=== PATIENT | female | born 1970 | race Two or more races ===

== ENCOUNTER 2019-05-29 16:23 | Emergency (ER) | payer OTHER ==
--- NOTE | 2019-05-29 16:49 | PDOC ---
Rapid Medical Evaluation Chief Complaint: Headache Time Seen by Provider: 05/29/19 16:47 Medical Evaluation: 05/29/19 16:47 c/o headache and blood pressure elevated than normal. patient c/o headache. patient reports one episode of nosebleed last night PE: patient alert ox3. A: hypertension P: patient to the ER for further management of care. 05/29/19 16:48 Discharge Disposition - Diagnosis Headache Qualifiers: Headache type: unspecified Headache chronicity pattern: acute headache Intractability: not intractable Qualified Code(s): R51 - Headache - Referrals - Patient Instructions - Post Discharge Activity
[2019-05-29 16:51] VITALS: BP 137/75; PULSE 71; TEMP 98.2; BMI 27.1
[2019-05-29] MEDS ORDERED: ACETAMINOPHEN 325 MG TABLET (FP) PO ONE (17:41)
--- NOTE | 2019-05-29 17:42 | PDOC ---
History of Present Illness - General Chief Complaint: Headache Stated Complaint: BLOOD PRESSURE PROBLEMS Time Seen by Provider: 05/29/19 16:47 - History of Present Illness Initial Comments: 05/29/19 18:07 49 yo F PMH cholecystectomy, appendectomy while in [place], presenting with occipital BRIGGS. Patient reports BRIGGS beginning yesterday, 12/22, took ibuprofen with improvement. However, she developed a nosebleed yesterday and noted her BPs were 150s/80s. She continued to have BRIGGS today, again responsive to ibuprofen. States that she never had these symptoms before so she was very concerned. Has a primary care doctor appointment on Saturday. Specifically denies CP, SOB, N/V, fevers/chills, constipation/diarrhea, weakness , numbness, tingling. Past History - Past Medical History Allergies/Adverse Reactions: Allergies Allergy/AdvReac Type Severity Reaction Status Date / Time No Known Allergies Allergy Verified 05/29/19 18:08 COPD: No - Immunization History Immunization Up to Date: Yes - Psycho Social/Smoking Cessation Hx Smoking History: Never smoked Information on smoking cessation initiated: No Hx Alcohol Use: No Drug/Substance Use Hx: No Review of Systems - Review of Systems Comments:: 05/29/19 18:51 GENERAL/CONSTITUTIONAL: No fever or chills. No weakness. HEAD, EYES, EARS, NOSE AND THROAT: No change in vision. No ear pain or discharge. No sore throat. CARDIOVASCULAR: No chest pain or shortness of breath. RESPIRATORY: No cough, wheezing, or hemoptysis. GASTROINTESTINAL: No nausea, vomiting, diarrhea or constipation. GENITOURINARY: No dysuria, frequency, or change in urination. MUSCULOSKELETAL: No joint or muscle swelling or pain. No neck or back pain. SKIN: No rash NEUROLOGIC: Occipital headache, no vertigo, loss of consciousness, or change in strength/sensation. ENDOCRINE: No increased thirst. No abnormal weight change. HEMATOLOGIC/LYMPHATIC: No anemia, easy bleeding, or history of blood clots. ALLERGIC/IMMUNOLOGIC: No hives or skin allergy *Physical Exam - Vital Signs Last Vital Signs Temp Pulse Resp BP Pulse Ox 98.2 F 71 17 137/75 98 05/29/19 16:48 05/29/19 16:48 05/29/19 16:48 05/29/19 16:48 05/29/19 16:48 ED Treatment Course - LABORATORY CBC & Chemistry Diagram: 05/29/19 21:02 05/29/19 21:02 Medical Decision Making - Medical Decision Making 05/29/19 18:52 Patient with headache responsive to ibuprofen at home, no fevers, neurological deficits, no hx IV drug use. - will assess response to acetaminophen - patient already has PMD appointment on Saturday - likely dc home 05/29/19 22:50 CT head with no acute pathology. Labs wnl. Will dc. Discharge - Discharge Information Problems reviewed: Yes Clinical Impression/Diagnosis: Headache Qualifiers: Headache type: unspecified Headache chronicity pattern: acute headache Intractability: not intractable Qualified Code(s): R51 - Headache Condition: Improved Disposition: HOME - Admission No - Follow up/Referral Referrals: Gerhard Sarmiento [Primary Care Provider] - - Patient Discharge Instructions Patient Printed Discharge Instructions: DI for Headache Additional Instructions: You were seen with a headache. This improved with medications. Go to your primary care appointment on Saturday. Take ibuprofen/acetaminophen as needed for your symptoms. Return to the ED if you develop worsening symptoms. - Post Discharge Activity
--- NOTE | 2019-05-29 20:58 | PDOC ---
Documentation entered by Lito Ravi SCRIBE, acting as scribe for Tierney Garcia MD. Tierney Garcia MD: This documentation has been prepared by the Trav penaloza Daniel, SCRIBE, under my direction and personally reviewed by me in its entirety. I confirm that the documentation accurately reflects all work, treatment, procedures, and medical decision making performed by me. Attending Attestation - Resident Resident Name: Jason Jessica - ED Attending Attestation I have performed the following: I have examined & evaluated the patient, The case was reviewed & discussed with the resident, I agree w/resident's findings & plan, Exceptions are as noted - HPI HPI: 05/29/19 19:12 49 h/o anemia here today for evaluation of occipital headache and nose bleed that started yesterday. Patient states that her blood pressure was in the 150s yesterday but normally it is in the 130s. Patient denies lightheadedness. Denies fever, chills. Denies chest pain, shortness of breath. Denies nausea, vomiting, diarrhea, abdominal pain. Allergies: NKA PCP: Gerhard Sarmiento 05/29/19 20:55 - Physicial Exam PE: 05/29/19 20:55 awake alert no acute distress lungs are clear bilaterally heart is regular without murmurs rubs or gallops abdomen is soft nontender extremities are warm well perfused strength is 5 out of 5 throughout skin is warm and dry 05/29/19 20:58 - Medical Decision Making 05/29/19 20:58 49-year-old female no significant past medical history other than anemia here today complaining of a headache. Patient states it started yesterday she describes it as a Cipollone trapezial headache has had similar headaches in the past also was noted to have a nosebleed states she turned the heat on recently in her house and felt that was very dry nosebleed was short and corrected with pressure denies feeling dizzy no focal weakness no fevers chills no trauma denies taking anything for her headache prior to arrival no nausea no vomiting she had checked her blood pressure yesterday and noted it was 150 systolic which is high for her she does not currently take any antihypertensives On my exam the patient is awake alert no acute distress lungs are clear bilaterally heart is regular without murmurs rubs or gallops abdomen is soft nontender extremities are warm well perfused strength is 5 out of 5 throughout skin is warm and dry Differential includes tension headache anemia due to the elevated blood pressure will order head CT to rule out any endorgan damage patient's pressure is much improved currently was given Tylenol for her pain with some improvement states she has follow-up with her PCP in 72 hours
[2019-05-29 21:27] LABS: BASO % 0.9 % (0-2.0); EOS % 2.1 % (0-4.5); HEMATOCRIT 35.7 % (32.4-45.2); HEMOGLOBIN 11.9 GM/dL (10.7-15.3); LYMPH % 26.9 % (8-40); MCH 29.1 pg (25.7-33.7); MCHC 33.3 g/dl (32.0-36.0); MEAN CELL VOLUME 87.5 fl (80-96); MEAN PLT VOLUME 10.6 fl (7.5-11.1); MONO % 6.7 % (3.8-10.2); NEUT % 63.4 % (42.8-82.8); PLATELET COUNT 205 K/MM3 (134-434); RBC 4.08 M/mm3 (3.60-5.2); RDW 13.8 % (11.6-15.6); WHITE BLOOD COUNT 5.9 K/mm3 (4.0-10.0)
[2019-05-29 21:46] LABS: ALBUMIN 3.9 g/dl (3.4-5.0); BILIRUBIN,TOTAL 0.3 mg/dL (0.2-1); CALCIUM 8.5 mg/dL (8.5-10.1); CREATININE 0.7 mg/dL (0.55-1.3); TOT PROT 7.4 g/dl (6.4-8.2)
== END 2019-05-29 23:37 | disposition home or self-care (01) ==
LOC: JER 16:23
DX: R51 Headache (principal); D64.9 Anemia, unspecified
CPT/HCPCS: 36415; 70450-TC; 80053; 85025; 99282-25

== ENCOUNTER 2021-04-09 19:58 | Emergency (ER) | payer OTHER ==
[2021-04-09 20:04] VITALS: BP 127/69; PULSE 74; TEMP 98.7; BMI 28.1
[2021-04-09] MEDS ORDERED: DIPHTH,PERTUSS(ACELL),TET 0.5 ML DISP.SYRIN IM ONE (21:52)
== END 2021-04-09 22:21 | disposition home or self-care (01) ==
LOC: JERFT 19:58 → JER 19:58 → JERFT 22:21
PROC: 0HQFXZZ Repair Right Hand Skin, External Approach (ICD-10-PCS; principal; 2021-04-09)
DX: S61.011A Laceration without foreign body of right thumb without damage to nail, initial encounter (principal); W25.XXXA Contact with sharp glass, initial encounter
CPT/HCPCS: 12001-25; 99282-25

== ENCOUNTER 2021-04-18 16:51 | Emergency (ER) | payer OTHER ==
[2021-04-18 17:28] VITALS: BP 128/59; PULSE 88; TEMP 97.9; BMI 29.0
[2021-04-18] MEDS ORDERED: CLINDAMYCIN 600MG PREMIX IVPB 600 MG/50 ML BAG IVPB ONE ×2 (18:10→18:14)
== END 2021-04-18 18:27 | disposition home or self-care (01) ==
LOC: JERFT 16:51
DX: T81.31XA Disruption of external operation (surgical) wound, not elsewhere classified, initial encounter (principal); L08.9 Local infection of the skin and subcutaneous tissue, unspecified
CPT/HCPCS: 99284-25

== ENCOUNTER 2022-02-15 15:37 | Emergency (ER) | payer OTHER ==
[2022-02-15 15:54] VITALS: BP 131/75; PULSE 77; RESP 18; TEMP 98.5; BMI 26.6
== END 2022-02-15 17:27 | disposition home or self-care (01) ==
LOC: JERFT 15:37
PROC: 0H9JXZZ Drainage of Left Upper Leg Skin, External Approach (ICD-10-PCS; principal; 2022-02-15)
DX: L02.416 Cutaneous abscess of left lower limb (principal)
CPT/HCPCS: 87070; 87186; 87205; 99282-25

== ENCOUNTER 2022-02-18 08:45 | Emergency (ER) | payer OTHER ==
[2022-02-18 09:01] VITALS: BP 112/60; PULSE 72; RESP 18; TEMP 98.2; BMI 26.8
== END 2022-02-18 09:50 | disposition home or self-care (01) ==
LOC: JER 08:45 → JERFT 08:45
DX: Z48.00 Encounter for change or removal of nonsurgical wound dressing (principal)
CPT/HCPCS: 99281-25

== ENCOUNTER 2024-04-15 23:42 | Emergency (ER) | payer OTHER ==
[2024-04-15 23:58] VITALS: BP 156/88; PULSE 69; RESP 18; TEMP 98.4; BMI 27.3
[2024-04-16] MEDS ORDERED: RABIES VACCINE (PCEC)/PF 2.5 UNIT/VIAL IM ONE (00:43)
[2024-04-16] MEDS ORDERED: RABIES IMMUNE GLOBULIN 300 UNITS/1 ML VIAL ONE (00:43)
[2024-04-16] MEDS: RABIES IMMUNE GLOBULIN 300 UNITS/1 ML VIAL IM ONE (01:31)
[2024-04-16] MEDS: RABIES VACCINE (PCEC)/PF 2.5 UNIT/VIAL IM ONE (01:32)
== END 2024-04-16 01:55 | disposition home or self-care (01) ==
LOC: JER 23:42
PROC: 3E023GC Introduction of Other Therapeutic Substance into Muscle, Percutaneous Approach (ICD-10-PCS; principal; 2024-04-16)
PROC: 3E0234Z Introduction of Serum, Toxoid and Vaccine into Muscle, Percutaneous Approach (ICD-10-PCS; 2024-04-16)
DX: S81.851A Open bite, right lower leg, initial encounter (principal); W54.0XXA Bitten by dog, initial encounter
CPT/HCPCS: 90375; 90675; 99284-25

== ENCOUNTER 2024-04-19 00:47 | Emergency (ER) | payer OTHER ==
[2024-04-19 00:56] VITALS: BP 134/107; PULSE 70; RESP 18; TEMP 98; BMI 25.7
[2024-04-19 02:04] LABS: HEMATOCRIT 37.2 % (32.4-45.2); HEMOGLOBIN 12.3 GM/dL (10.7-15.3); MCH 27.1 pg (25.7-33.7); MEAN CELL VOLUME 82.3 fl (80-96); MEAN PLT VOLUME 9.6 fl (7.5-11.1); PLATELET COUNT 186 10^3/uL (134-434); RBC 4.52 M/mm3 (3.60-5.2); RDW 18.4 % (11.6-15.6); WHITE BLOOD COUNT 6.6 K/mm3 (4.0-10.0)
[2024-04-19 02:17] LABS: INR 1.04 (0.83-1.09); PROTHROMBIN TIME (PATIENT) 11.7 SEC (9.7-13.0)
[2024-04-19 02:32] LABS: POTASSIUM 3.8 mmol/L (3.5-5.1)
[2024-04-19 02:34] LABS: ALBUMIN 3.9 g/dl (3.4-5.0); BLOOD UREA NITROGEN 17.5 mg/dL (7-18); CALCIUM 9.1 mg/dL (8.5-10.1)
[2024-04-19 02:38] LABS: CREATININE 0.8 mg/dL (0.55-1.3)
[2024-04-19 02:39] LABS: BILIRUBIN,TOTAL 0.2 mg/dL (0.2-1); TOT PROT 7.2 g/dl (6.4-8.2)
[2024-04-19] MEDS: RABIES VACCINE (PCEC)/PF 2.5 UNIT/VIAL IM ONE (04:36)
== END 2024-04-19 04:46 | disposition home or self-care (01) ==
LOC: JER 00:47
PROC: 3E0234Z Introduction of Serum, Toxoid and Vaccine into Muscle, Percutaneous Approach (ICD-10-PCS; principal; 2024-04-19)
DX: R07.89 Other chest pain (principal); R10.13 Epigastric pain; Z23 Encounter for immunization
CPT/HCPCS: 36415; 71045-TC-FY; 80053; 84484; 85027; 85610; 90675; 93005; 93010; 99285-25

== ENCOUNTER 2024-04-20 17:40 | Emergency (ER) | payer OTHER ==
[2024-04-20 17:44] VITALS: BP 136/87; PULSE 81; RESP 16; TEMP 98.5; BMI 27.3
[2024-04-20] MEDS ORDERED: ACETAMINOPHEN 500 MG TABLET (FP) ONE (18:38)
[2024-04-20] MEDS ORDERED: KETOROLAC TROMETHAMINE 30 MG/1 ML VIAL ONE (18:38)
[2024-04-20] MEDS: KETOROLAC TROMETHAMINE 30 MG/1 ML VIAL IM ONE (18:46)
[2024-04-20] MEDS: ACETAMINOPHEN 500 MG TABLET (FP) PO ONE (18:46)
[2024-04-20 19:03] LABS: URINE APPEARANCE CLEAR; URINE BILIRUBIN NEGATIVE (NEGATIVE); URINE COLOR YELLOW; URINE GLUCOSE (UA) NEGATIVE (NEGATIVE); URINE KETONE NEGATIVE (NEGATIVE); URINE LEUK ESTERASE NEGATIVE (NEGATIVE); URINE NITRITE NEGATIVE (NEGATIVE); URINE PROTEIN NEGATIVE (NEGATIVE); URINE UROBILINOGEN 0.2 mg/dL (0.2-1.0)
== END 2024-04-20 21:48 | disposition home or self-care (01) ==
LOC: JER 17:40
PROC: 3E0133Z Introduction of Anti-inflammatory into Subcutaneous Tissue, Percutaneous Approach (ICD-10-PCS; principal; 2024-04-20)
DX: M54.12 Radiculopathy, cervical region (principal); M79.602 Pain in left arm
CPT/HCPCS: 36415; 72050-TC-FY; 81003; 84484; 87086; 93005; 93010; 96372; 99285-25

== ENCOUNTER 2024-04-23 23:03 | Emergency (ER) | payer OTHER ==
[2024-04-23 23:15] VITALS: BP 123/77; PULSE 74; RESP 18; TEMP 98.4; BMI 27.3
[2024-04-24] MEDS ORDERED: RABIES VACCINE (PCEC)/PF 2.5 UNIT/VIAL IM ONE (00:15)
[2024-04-24] MEDS: RABIES VACCINE (PCEC)/PF 2.5 UNIT/VIAL IM ONE (00:20)
== END 2024-04-24 00:25 | disposition home or self-care (01) ==
LOC: JER 23:03
DX: Z29.14 Encounter for prophylactic rabies immune globulin (principal)
CPT/HCPCS: 90675; 99281-25

== ENCOUNTER 2024-04-30 23:43 | Emergency (ER) | payer OTHER ==
[2024-04-30 23:52] VITALS: BP 124/76; PULSE 65; RESP 18; TEMP 98.3; BMI 27.3
[2024-05-01] MEDS: RABIES VACCINE (PCEC)/PF 2.5 UNIT/VIAL IM ONE (00:50)
== END 2024-05-01 00:53 | disposition home or self-care (01) ==
LOC: JER 23:43
PROC: 3E0234Z Introduction of Serum, Toxoid and Vaccine into Muscle, Percutaneous Approach (ICD-10-PCS; principal; 2024-05-01)
DX: Z29.14 Encounter for prophylactic rabies immune globulin (principal)
CPT/HCPCS: 90675; 99281-25

== ENCOUNTER 2024-07-31 11:17 | Emergency (ER) | payer OTHER ==
[2024-07-31 11:23] VITALS: BP 157/72; PULSE 74; RESP 20; TEMP 97.7; BMI 25.7
[2024-07-31] MEDS ORDERED: FLUORESCEIN NA 1 EA STRIP ONE (13:34)
[2024-07-31] MEDS ORDERED: TETRACAINE 0.5% OPHTH SOLN 2 ML BOTTLE ONE (13:34)
[2024-07-31] MEDS: TETRACAINE 0.5% OPHTH SOLN 2 ML BOTTLE OS ONE (13:56)
[2024-07-31] MEDS: FLUORESCEIN NA 1 EA STRIP OS ONE (13:56)
[2024-07-31 14:31] LABS: THROAT:GRP A STREP NOT DETECTED (NOTDETECTED)
== END 2024-07-31 14:07 | disposition home or self-care (01) ==
LOC: JERFT 11:17
DX: H10.9 Unspecified conjunctivitis (principal); B97.89 Other viral agents as the cause of diseases classified elsewhere; R05.9 Cough, unspecified; R22.0 Localized swelling, mass and lump, head; Z20.822 Contact with and (suspected) exposure to COVID-19
CPT/HCPCS: 0241U-QW; 87651; 99283-25